=== PATIENT | male | born 1955 | race Caucasian/White ===

== ENCOUNTER 2019-05-02 16:06 | Outpatient (RCR) | payer BC | END 2019-05-07 06:25 | disposition home or self-care (01) | LOC: COL.CR 16:06 | DX: Z48.812 Encounter for surgical aftercare following surgery on the circulatory system (principal); Z98.61 Coronary angioplasty status; I25.83 Coronary atherosclerosis due to lipid rich plaque ==

== ENCOUNTER 2019-05-07 14:44 | Outpatient (RCR) | payer SELFPAY | END 2019-08-03 | disposition home or self-care (01) | LOC: COL.CR | DX: Z02.89 Encounter for other administrative examinations (principal) ==

== ENCOUNTER → 2020-09-02 | Outpatient (CLI) | payer BC | LOC: COL.RAD 09-01 08:15 | DX: S46.011A Strain of muscle(s) and tendon(s) of the rotator cuff of right shoulder, initial encounter (principal) | CPT/HCPCS: Q9967 ==